=== PATIENT | female | born 1980 | race Caucasian/White ===

== ENCOUNTER 2022-02-13 09:40 | Emergency (ER) | payer OTHER ==
--- NOTE | 2022-02-13 09:57 | ED Physician Documentation ---
PD HPI FEMALE - Stated complaint Stated Complaint: BODY PX/FEMALE - Chief complaint Chief Complaint: General - History obtained from History obtained from: Patient - History of Present Illness Timing - onset: How many days ago (3) Timing - duration: Days (3) Timing - details: Abrupt onset, Still present Associated symptoms: Back pain (bilateral flank area.), Hematuria (possible hematuria versus protein. Has had rhabdo in the past with dehydration and excessive work activity, and had similar urine color.), Other (general myalgias body wide.). No: Fever, Dysuria Contributing factors: Other (denies excessive physical activity. Has had less oral intake due to her gastric sleeve and also some nausea feeling.) Similar symptoms before: Diagnosis (dehydration with rhabdo.) Recently seen: Not recently seen Review of Systems Constitutional: reports: Myalgias (diffusely), Fatigue. denies: Fever, Chills Nose: denies: Rhinorrhea / runny nose, Congestion Throat: denies: Sore throat Cardiac: denies: Chest pain / pressure Respiratory: denies: Cough GI: reports: Nausea. denies: Abdominal Pain, Vomiting, Diarrhea : reports: Other (brown colored urine). denies: Dysuria Musculoskeletal: reports: Back pain. denies: Neck pain Neurologic: reports: Generalized weakness. denies: Altered mental status, Headache PD PAST MEDICAL HISTORY - Past Medical History Cardiovascular: None Respiratory: None Endocrine/Autoimmune: None Musculoskeletal: Other (fibromyalgia and lupus, not on current medications. ) - Past Surgical History General: Other (gastric sleeve for weight loss.) - Present Medications Home Medications: Ambulatory Orders Medication Instructions Recorded Confirmed dexAMETHasone [Decadron] 4 mg PO DAILY #5 tablet 02/13/22 - Allergies Allergies/Adverse Reactions: Allergies Allergy/AdvReac Type Severity Reaction Status Date / Time No Known Drug Allergies Allergy Verified 02/13/22 09:46 PD ED PE NORMAL - Vitals Vital signs reviewed: Yes - General General: Alert and oriented X 3, No acute distress, Well developed/nourished - HEENT HEENT: Pharynx benign. No: Moist mucous membranes - Neck Neck: Supple, no meningeal sign, No adenopathy - Cardiac Cardiac: RRR, No murmur - Respiratory Respiratory: Clear bilaterally - Abdomen Abdomen: Normal bowel sounds, Soft, Non distended, No organomegaly, Other - Back Back: No CVA TTP - Derm Derm: Normal color, Warm and dry, No rash Results - Vitals Vitals: Vital Signs - 24 hr 02/13/22 02/13/22 02/13/22 09:43 11:46 13:00 Temperature 36.6 C Heart Rate 96 63 73 Respiratory 16 19 18 Rate Blood Pressure 130/84 H 131/83 H 131/77 H O2 Saturation 99 99 99 Oxygen O2 Source Room air - Labs Labs: Laboratory Tests 02/13/22 02/13/22 02/13/22 10:14 10:28 10:28 WBC 7.0 RBC 4.24 Hgb 13.2 Hct 39.6 MCV 93.4 MCH 31.1 H MCHC 33.3 RDW 14.7 Plt Count 335 MPV 8.8 Neut # (Auto) 3.3 Lymph # (Auto) 2.9 [place] # (Auto) 0.6 Eos # (Auto) 0.1 Baso # (Auto) 0.0 Absolute Nucleated RBC 0.00 Nucleated RBC % 0.0 ESR Sodium 139 Potassium 3.9 Chloride 106 Carbon Dioxide 25 Anion Gap 8.0 BUN 11 Creatinine 0.5 Estimated GFR (MDRD) 137 Glucose 74 Calcium 8.4 L Magnesium 1.9 Total Bilirubin 1.0 AST 24 ALT 18 Alkaline Phosphatase 44 Total Creatine Kinase 53 Total Protein 6.4 L Albumin 3.5 Globulin 2.9 Albumin/Globulin Ratio 1.2 Lipase 71 H Urine Color YELLOW Urine Clarity CLEAR Urine pH 6.0 Ur Specific [place] 1.020 Urine Protein NEGATIVE Urine Glucose (UA) NEGATIVE Urine Ketones NEGATIVE Urine Occult Blood NEGATIVE Urine Nitrite NEGATIVE Urine Bilirubin NEGATIVE Urine Urobilinogen 0.2 (NORMAL) Ur Leukocyte Esterase NEGATIVE Ur Microscopic Review NOT INDICATED Urine Culture Comments NOT INDICATED Urine HCG, Qual NEGATIVE 02/13/22 10:28 WBC RBC Hgb Hct MCV MCH MCHC RDW Plt Count MPV Neut # (Auto) Lymph # (Auto) [place] # (Auto) Eos # (Auto) Baso # (Auto) Absolute Nucleated RBC Nucleated RBC % ESR 1 Sodium Potassium Chloride Carbon Dioxide Anion Gap BUN Creatinine Estimated GFR (MDRD) Glucose Calcium Magnesium Total Bilirubin AST ALT Alkaline Phosphatase Total Creatine Kinase Total Protein Albumin Globulin Albumin/Globulin Ratio Lipase Urine Color Urine Clarity Urine pH Ur Specific [place] Urine Protein Urine Glucose (UA) Urine Ketones Urine Occult Blood Urine Nitrite Urine Bilirubin Urine Urobilinogen Ur Leukocyte Esterase Ur Microscopic Review Urine Culture Comments Urine HCG, Qual PD MEDICAL DECISION MAKING - ED course Complexity details: reviewed results, considered differential (less intake with some nausea and volume is difficult with her gastric sleeve. Sounds perhaps dehydrated. Can give IV fluids and check labs/UA. ), d/w patient Departure - Departure Disposition: 01 Home, Self Care Clinical Impression: Myalgia, Dehydration Condition: Stable Record reviewed to determine appropriate education?: Yes Instructions: ED Muscle Aching Prescriptions: dexAMETHasone [Decadron] 4 mg PO DAILY #5 tablet Comments: Frequent fluids and electrolyte type replacement such as Powerade or Gatorade. I would suggest some acetaminophen which can be in liquid form 4 times a day to help with some of the pains. You would just need to take 4 teaspoons per dose in order to get an appropriate adult dosing. Consider also Decadron steroid daily for the next 5 days to help with the inflammatory flareup. On your blood tests here are good with normal electrolytes, blood sugar, creatinine kinase and blood count. No signs of rhabdo or renal insufficiency. Discharge Date/Time: 02/13/22 13:53
[2022-02-13] MEDS ORDERED: SODIUM CHLORIDE 0.9% 1,000 ML IV STA ×2 (10:15→12:06)
[2022-02-13] MEDS ORDERED: ONDANSETRON 4 MG/2 ML VIAL IVP STA (10:15)
[2022-02-13] MEDS ORDERED: DEXAMETHASONE 10 MG/ML VIAL IVP STA (10:15)
[2022-02-13 10:29] LABS: BILIRUBIN,URINE NEGATIVE (NEGATIVE); GLUCOSE, URINE (UA) NEGATIVE (NEGATIVE); KETONES,URINE (UA) NEGATIVE (NEGATIVE); LEUKOCYTE ESTERASE, URINE NEGATIVE (NEGATIVE); NITRITE,URINE NEGATIVE (NEGATIVE); OCCULT BLOOD,URINE NEGATIVE (NEGATIVE); PROTEIN,URINE NEGATIVE (NEGATIVE); UROBILINOGEN,URINE 0.2 (NORMAL) E.U./dL (NORMAL)
[2022-02-13 10:32] LABS: CLARITY,URINE CLEAR (CLEAR); HCG UR QUAL NEGATIVE
[2022-02-13 10:36] LABS: BASOPHILS % (AUTO) 0.6 %; EOSINOPHILS # (AUTO) 0.1 10^3/uL (0.0-0.7); EOSINOPHILS % (AUTO) 1.9 %; HCT - HEMATOCRIT 39.6 % (37.0-47.0); HGB - HEMOGLOBIN 13.2 g/dL (12.0-16.0); LYMPHOCYTES # (AUTO) 2.9 10^3/uL (1.5-3.5); LYMPHOCYTES % (AUTO) 41.5 %; MEAN CORPUSCULAR HEMOGLOBIN 31.1 pg (27.0-31.0); MEAN CORPUSCULAR HGB CONC 33.3 g/dL (32.0-36.0); MEAN CORPUSCULAR VOLUME 93.4 fL (81.0-99.0); MEAN PLATELET VOLUME 8.8 fL (7.9-10.8); MONOCYTES # (AUTO) 0.6 10^3/uL (0.0-1.0); NEUTROPHILS # (AUTO) 3.3 10^3/uL (1.5-6.6); NEUTROPHILS % (AUTO) 46.7 %; PLT - PLATELET COUNT 335 10^3/uL (130-450); RED BLOOD COUNT 4.24 10^6/uL (4.20-5.40); RED CELL DISTRIBUTION WIDTH 14.7 % (12.0-15.0)
[2022-02-13 10:48] LABS: ALBUMIN 3.5 g/dL (3.2-5.5); ALBUMIN/GLOBULIN RATIO 1.2 (1.0-2.2); CALCIUM 8.4 mg/dL (8.5-10.3); CREATININE 0.5 mg/dL (0.4-1.0); MAGNESIUM 1.9 mg/dL (1.7-2.8); POTASSIUM 3.9 mmol/L (3.5-5.0); TOTAL PROTEIN 6.4 g/dL (6.7-8.2)
[2022-02-13] MEDS ORDERED: LACTATED RINGERS 1,000 ML IV STA (11:25)
[2022-02-13 13:04] VITALS: BP 131/77
== END 2022-02-13 13:53 | disposition home or self-care (01) ==
LOC: ED 09:40
DX: E86.0 Dehydration (principal); M79.10 Myalgia, unspecified site; Z98.84 Bariatric surgery status
CPT/HCPCS: 36415; 80053; 81003; 81025; 82550; 83690; 83735; 85025; 85651; 96361; 96374; 99282; 99283; J7120; 81001; 87086

== ENCOUNTER 2022-10-22 15:12 | Outpatient (CLI) | payer SELFPAY ==
[2022-10-23 03:08] LABS: HBsAG SCREEN Negative (Negative)
[2022-10-23 04:07] LABS: HSV 1 IGG TYPE SPEC <0.91 index (0.00-0.90); HSV 2 IGG TYPE SPEC <0.91 index (0.00-0.90)
[2022-10-23 05:09] LABS: HCV AB <0.1 s/co ratio (0.0-0.9); HIV SCREEN 4TH GENERATION Non Reactive (Non Reactive)
[2022-10-23 08:09] LABS: RPR Non Reactive (Non Reactive)
== END 2022-10-22 15:13 | disposition home or self-care (01) ==
LOC: LAB 15:12
PROVIDERS: ATTEND Nurse Practitioner
DX: Z11.3 Encounter for screening for infections with a predominantly sexual mode of transmission (principal)
CPT/HCPCS: 36415; 86592; 86695; 86696; 86803; 87340; 87389

== ENCOUNTER 2022-10-23 08:00 | Outpatient (CLI) | payer SELFPAY ==
[2022-10-23 20:54] LABS: CHLAMYDIA TRACHOMATIS DNA NEGATIVE (NEGATIVE); NEISSERIA GONORRHOEAE DNA NEGATIVE (NEGATIVE); TRICHOMONAS VAGINALIS DNA NEGATIVE (NEGATIVE)
== END 2022-10-23 23:59 | disposition home or self-care (01) ==
LOC: LAB.WC 08:00
PROVIDERS: ATTEND Nurse Practitioner
DX: Z11.3 Encounter for screening for infections with a predominantly sexual mode of transmission (principal)
CPT/HCPCS: 87491; 87591; 87661

== ENCOUNTER 2024-04-10 21:22 | Outpatient (CLI) | payer SELFPAY | END 2024-04-10 21:23 | disposition left against medical advice (07) | LOC: EMS 21:22 | DX: R40.4 Transient alteration of awareness (principal); S09.90XA Unspecified injury of head, initial encounter; F10.90 Alcohol use, unspecified, uncomplicated; W08.XXXA Fall from other furniture, initial encounter; Y92.009 Unspecified place in unspecified non-institutional (private) residence as the place of occurrence of the external cause ==

== ENCOUNTER 2024-04-11 23:20 | Emergency (ER) | payer SELFPAY ==
--- NOTE | 2024-04-12 00:25 | ED Physician Documentation ---
PD HPI HEAD INJURY - Stated complaint Stated Complaint: SYNCOPE - Chief complaint Chief Complaint: Neuro - History obtained from History obtained from: Patient - Additional information Additional information: The patient comes to the emergency department chief complaint of fall with loss of consciousness yesterday and head injury. She states it was around 2100 on April 10 that she fell. She states that she had taken half tablet of her oxycodone for her fibromyalgia plus a shot of rum which is her usual regimen when her fibromyalgia is acting up. She states that she suddenly began to feel "woozy" and then fell to the floor, apparently striking her forehead on the floor. The patient's significant other was there and saw it happen. The patient was unconscious for a few minutes and when medics arrived, they administered Narcan after which the patient immediately woke up. The patient states that it made her begin vomiting but she kept vomiting intermittently throughout the night. She has vomited occasionally today but is feeling little better in this regard. She states otherwise she feels fairly well except for a feeling of general body numbness. She states the swelling of her forehead has gone down and that she does not have any other neurologic complaints. She has been able to hold fluids down in between vomiting. PD PAST MEDICAL HISTORY - Past Medical History Past Medical History: No Cardiovascular: None Respiratory: None Endocrine/Autoimmune: None Musculoskeletal: Other - Past Surgical History Past Surgical History: Yes General: Other - Present Medications Home Medications: Ambulatory Orders Medication Instructions Recorded Confirmed dexAMETHasone [Decadron] 4 mg PO DAILY #5 tablet 02/13/22 - Allergies Allergies/Adverse Reactions: Allergies Allergy/AdvReac Type Severity Reaction Status Date / Time No Known Drug Allergies Allergy Verified 04/11/24 23:29 - Social History Does the pt smoke?: Yes Smoking Status: Current every day smoker PD ED PE NORMAL - Vitals Vital signs reviewed: Yes - General General: Alert and oriented X 3, No acute distress, Well developed/nourished - HEENT HEENT: Atraumatic, PERRL, EOMI, Moist mucous membranes - Neck Neck: Supple, no meningeal sign - Cardiac Cardiac: RRR, No murmur - Respiratory Respiratory: No respiratory distress, Clear bilaterally - Abdomen Abdomen: Soft, Non tender, Non distended - Back Back: No spinal TTP - Derm Derm: Normal color, Warm and dry, No rash - Extremities Extremities: No deformity, No edema - Neuro Neuro: No motor deficit, Other (Alert, no gross deficits.) - Psych Psych: Normal mood, Normal affect Results - Vitals Vitals: Oxygen O2 Source Room air PD Medical Decision Making - ED course Complexity details: reviewed results, re-evaluated patient, considered differential, d/w patient ED course: The patient was very well-appearing in the emergency department and I did not find any evidence of an emergent condition. The patient had not had any neurologic decline since her fall yesterday. We discussed symptomatic management at home as well as usual indications for return. We have also discussed the need for follow-up. Departure - Departure Disposition: Home, Self Care Clinical Impression: Closed head injury Qualifiers: Encounter type: initial encounter Qualified Code(s): S09.90XA - Unspecified injury of head, initial encounter Episode of syncope Qualifiers: Syncope type: unspecified Qualified Code(s): R55 - Syncope and collapse Contusion Qualifiers: Encounter type: initial encounter Contusion area: head Contusion of head detail: other part of head Qualified Code(s): S00.83XA - Contusion of other part of head, initial encounter Vomiting Qualifiers: Vomiting type: bilious vomiting Nausea presence: with nausea Qualified Code(s): R11.14 - Bilious vomiting Condition: Stable Instructions: ED Concussion, ED Fainting Unkn Cause, ED Nausea Vomiting Comments: Overall, your exam is reassuring and given the amount of time that has elapsed since you hit your head, it is highly unlikely that you have bleeding in your brain. In general, during the first hours after head injury, significant and very specific symptoms should begin to develop indicating the bleeding in the brain and these are not present with you. It is not clear exactly what caused you to feel "woozy", and there are number of potential causes as we have discussed. If this becomes a recurrent issue, you will need to talk to your doctor about wearing an event monitor to see if there is a problem intermittently with your heart rhythm. For now, be sure you are drinking plenty of fluids and getting plenty of rest. You may take the nausea medication as needed. In general, symptoms of concussion last for anywhere from a few days to a couple of weeks. As long as you are not getting worse, continue managing your symptoms at home. If you feel like you are getting progressively worse, please return to the emergency department for reevaluation. Please follow-up with your primary doctor for further concerns. Forms: PCP List Discharge Date/Time: 04/12/24 00:31
[2024-04-12] MEDS: ONDANSETRON ODT 4 MG TABLET TL STA (00:27)
[2024-04-12] MEDS: ONDANSETRON ODT 4 MG Prepack 2 TL PRN (00:28)
[2024-04-12 00:43] VITALS: BP 137/68; O2SAT 100
== END 2024-04-12 00:31 | disposition home or self-care (01) ==
LOC: ED 23:20
DX: R55 Syncope and collapse (principal); S00.83XA Contusion of other part of head, initial encounter; W19.XXXA Unspecified fall, initial encounter; Y92.009 Unspecified place in unspecified non-institutional (private) residence as the place of occurrence of the external cause; R11.14 Bilious vomiting
CPT/HCPCS: 99282; 99283; A9270; Q0162